=== PATIENT | female | born 1990 | race Hispanic/Latino ===

== ENCOUNTER → 2023-04-29 09:59 | Outpatient (CLI) | payer OTHER, SELFPAY ==
[2023-04-29 16:15] LABS: Urine N gonorrhoeae NOT DETECTED
[2023-04-29 16:18] LABS: Urine Chlamydia NOT DETECTED
== END ==
PROVIDERS: PCP Family Medicine; Visit Provider Obstetrics & Gynecology
DX: Z34.01 Encounter for supervision of normal first pregnancy, first trimester (principal); Z3A.12 12 weeks gestation of pregnancy
CPT/HCPCS: 87491; 87591

== ENCOUNTER → 2023-04-29 10:35 | Outpatient (CLI) | payer OTHER, SELFPAY ==
[2023-04-29 11:19] LABS: Add Manual Diff / Slide Review NO; Basophils Absolute Auto 0 /uL (0-100); Basophils Percent Auto 0.3 % (0-2); Eosinophils Absolute Auto 300 /uL (0-450); Eosinophils Percent Auto 2.3 % (2-4); Hematocrit 38.1 % (36-46); Hemoglobin 13.2 g/dL (12.0-16.0); Lymphocytes Absolute Auto 1800 /uL (1100-4500); Lymphocytes Percent Auto 13.4 % (25-40); Mean Corpuscular HGB Conc 34.5 % (30-36); Mean Corpuscular Hemoglobin 30.1 PG (26-34); Monocytes Absolute Auto 1100 /uL (0-900); Monocytes Percent Auto 7.9 % (3-14); Neutrophils Absolute Auto 10500 /uL (1500-7000); Neutrophils Percent Auto 76.1 % (50-75); Platelet Count 240 X10^3/uL (150-400); Red Blood Cell Count 4.38 X10^6/uL (4.0-5.2); Red Cell Distribution Width 14.3 % (11.6-14.8); White Blood Cell Count 13.8 X10^3/uL (4.5-11.0)
--- NOTE | 2023-04-29 12:42 | DI.US.S_ITS ---
PROCEDURE: US OB <= 14 WEEKS FETUS INDICATIONS: VIABILITY OUTSIDE/PRIOR DATING DATA: Last menstrual period (LMP): 02/01/2023. LMP-based estimated date of delivery (CHENG): 11/08/2023. First dating scan (date and location): 04/29/2023. Estimated date of delivery (CHENG) from first dating scan: 11/07/2023. TECHNIQUE: Real-time scanning was performed of the fetus and maternal pelvic organs, with image documentation. Endovaginal scanning was also performed to better visualize the fetus and maternal ovaries. COMPARISON: None. FINDINGS: Embryo: [place]-rump length measures 6.2 cm corresponding with a 12 week 4 day gestation. Yolk sac noted Heart rate: 158 beats per minute Maternal organs: Ovaries resolving right ovarian corpus luteum cyst 1.5 cm. IMPRESSION: Single live intrauterine corresponds at 12 week 4 day gestation Approved by: Lazarus Abarca M.D. on 04/29/2023 at 14:51
[2023-04-30 08:11] LABS: RPR Screen Non Reactive (Non Reactive)
[2023-04-30 12:17] LABS: Varicella IgG Antibody 904 index (Immune >165)
[2023-04-30 18:31] LABS: HIV 1 & 2 Ab/Ag 4th Gen Combo NEGATIVE (NEGATIVE); Hep C Virus Ab w/Reflex Quant NEGATIVE s/c (NEGATIVE); Hepatitis B Surface Antigen NEGATIVE s/c (NEGATIVE); Rubella Antibody IgG 53.3 IU/mL (>15)
== END ==
PROVIDERS: Obstetrics & Gynecology; PCP Family Medicine; Referring Provider Specialist; Visit Provider Specialist
DX: O09.811 Supervision of pregnancy resulting from assisted reproductive technology, first trimester; Z3A.12 12 weeks gestation of pregnancy
CPT/HCPCS: 36415; 76801; 76830; 80055; 86787; 86803; 86850; 86900; 86901; 87389; 87491; 87591; 93975

== ENCOUNTER → 2023-06-12 09:42 | Outpatient (CLI) | payer OTHER, SELFPAY ==
--- NOTE | 2023-06-12 09:43 | DI.US.S_ITS ---
PROCEDURE: US OB >= 14 WEEKS FETUS INDICATIONS: 20 WEEK ANATOMY OUTSIDE/PRIOR DATING DATA: Last menstrual period (LMP): 02/01/2023. LMP-based estimated date of delivery (CHENG): 11/08/2023 First dating scan (date and location): 04/29/2023. Estimated date of delivery (CHENG) from first dating scan: 11/07/2023 TECHNIQUE: Real-time scanning was performed of the fetus, with image documentation and biometric measurements. COMPARISON: 04/29/2023 FINDINGS: General: A single living intrauterine gestation is present. Presentation: Breech. Placenta: Placental position is anterior , without previa. Amniotic fluid index: 12.2 cm, normal range is 5-24 cm. Single deepest vertical pocket is 3.9 cm. heart rate: 153 beats per minute. Maternal cervical canal: 4.3 cm long. Normal lower limit is 2.5 cm. biometrics: Biparietal diameter: 4.7 cm, 20 weeks and 2 days Head circumference: 17.1 cm, 19 weeks and 5 days Abdominal circumference: 15.8 cm, 21 weeks Femur length: 2.9 cm, 19 weeks Clinically estimated gestational age: 18 weeks and 5 days Composite gestational age from present scan: 20 weeks Estimated weight and percentile: 331 g, EFW is at the 99th percentile Umbilical artery Dopplers were obtained, measuring up to 3.5-5 SD ratio, which is at the upper limit of normal. Anatomic survey: Neuro: Ventricles are non-dilated at less than 10 mm. Cisterna magna is normal at 3-11 mm. Cerebellum is normal in size and morphology. Nuchal skin fold: Normal at less than 6 mm between 14-21 weeks gestational age. Face: Nose and lips, facial profile are normal. Spine: No evidence for spina bifida. Heart: 4-chambered heart is present, with normal ventricular outflow tracts. Diaphragm: Diaphragm is intact. Stomach: Left-sided stomach is present. Kidneys: No hydronephrosis. Normal is less than 5 mm in 2nd trimester, less than 7 mm in 3rd trimester. Cord: 3-vessel cord has orthotopic insertion. Bladder: Normal in size. Extremities: All 4 extremities identified. IMPRESSION: Living intrauterine gestation at 18 weeks and 5 days based on prior dating, EFW at the 99th percentile, 331 g. Consider follow-up ultrasound for growth. Normal THANIA No significant abnormalities otherwise identified routine anatomic survey. Dictated by: Papa Edwards M.D. on 06/12/2023 at 11:27 Approved by: Papa Edwards M.D. on 06/12/2023 at 11:33
[2023-06-16 23:27] LABS: AFP Value 71.8 ng/mL (.); Insulin Dep Diabetes No (.); OSBR Risk 1IN 10000 (.); Results Report (.); Test Results *Screen Negative* (.)
== END ==
PROVIDERS: PCP Family Medicine; Referring Provider Obstetrics & Gynecology; Visit Provider Obstetrics & Gynecology
DX: Z34.02 Encounter for supervision of normal first pregnancy, second trimester (principal); Z3A.18 18 weeks gestation of pregnancy
CPT/HCPCS: 36415; 76811; 82105